=== PATIENT | female | born 1990 | race Caucasian/White ===

== ENCOUNTER 2019-11-18 11:32 | Outpatient (CLI) | payer OTHER ==
[~2019-11-18] VITALS: Ht 149.9 cm; Wt 64.1 kg
[2019-11-18 11:57] VITALS: BP 117/72
== END 2019-11-18 13:30 | disposition home or self-care (01) ==
LOC: LDOP 11:32
PROVIDERS: ATTEND Student in an Organized Health Care Education/Training Program
DX: Z34.93 Encounter for supervision of normal pregnancy, unspecified, third trimester (principal); Z3A.39 39 weeks gestation of pregnancy
CPT/HCPCS: 59025

== ENCOUNTER 2019-11-22 19:09 | Outpatient (CLI) | payer OTHER ==
[2019-11-22] MEDS ORDERED: PREN1TAB79 PO (19:22)
[2019-11-24] MEDS ORDERED: IBUP-1223 PO (16:45)
== END 2019-11-22 20:40 | disposition home or self-care (01) ==
LOC: LDOP 19:09
PROVIDERS: ATTEND Student in an Organized Health Care Education/Training Program
DX: O26.893 Other specified pregnancy related conditions, third trimester (principal); R10.9 Unspecified abdominal pain; Z3A.40 40 weeks gestation of pregnancy
CPT/HCPCS: 59025